=== PATIENT | male | born 1975 | race Two or more races ===

== ENCOUNTER 2023-03-20 13:15 | Emergency (ER) | payer SELFPAY ==
[~2023-03-20] VITALS: Ht 177.8 cm; Wt 86.0 kg
[2023-03-20 13:22] VITALS: BP 124/78; PULSE 76; RESP 17; O2SAT 99
== END 2023-03-20 14:23 | disposition home or self-care (01) ==
LOC: ER 13:15 → EDBD 13:15 → ER 14:23
DX: F10.129 Alcohol abuse with intoxication, unspecified (principal); I10 Essential (primary) hypertension